=== PATIENT | female | born 1960 | race African-American/Black ===

== ENCOUNTER → 2017-01-01 | Outpatient (CLI) | payer MEDICARE, OTHER ==
--- NOTE | ~2017-01-01 | PFT ---
[id number] [facility] [address] [facility]. [place], [place] [address] [id number] O MR#: [id number] NAME: ANTHONY VO ROOM: SEX: F STUDY DATE/TIME: 01/08/2017 : 1960 AGE: 56 STUDY DESCRIPTION: Attending Physician: Fartun Haley M.D. Primary Care Physician: Fartun Haley M.D. PULMONARY DIAGNOSTIC REPORT EXAM Pulmonary function test. FINDINGS Spirometry is normal. There is no significant response to bronchodilators. Flow volume loop is unremarkable. Total lung capacity is reduced to 77%. Diffusion capacity is moderately reduced at 57% suggesting an intrinsic restrictive defect such as pulmonary fibrosis and clinical correlation is needed. Dictated by... Danielito Engle/clara TD: 01/08/2017 12:51 JOB #: [id number] PULMONARY DIAGNOSTIC REPORT
== END | disposition home or self-care (01) ==
LOC: CRC 07:54
DX: J44.9 Chronic obstructive pulmonary disease, unspecified (principal)
CPT/HCPCS: 94060; 94726; 94729